=== PATIENT | female | born 1960 | race Two or more races ===

== ENCOUNTER 2023-03-31 12:35 | Emergency (ER) | payer OTHER ==
[~2023-03-31] VITALS: Ht 170.2 cm; Wt 85.3 kg
[2023-03-31] MEDS ORDERED: LUNESTA3 MG (13:49)
[2023-03-31] MEDS ORDERED: LISINOPRIL2.5 MG (13:49)
[2023-03-31] MEDS ORDERED: LEXAPRO20 MG PO (13:49)
[2023-03-31] MEDS ORDERED: PROTONIX20 MG PO (13:50)
[2023-03-31] MEDS ORDERED: SYNTHROID112 MCG PO (13:50)
[2023-03-31] MEDS ORDERED: XOPENEX HFA15 GM IH (13:50)
[2023-03-31] MEDS ORDERED: ALLERGY RELIE15.8 ML (13:50)
[2023-03-31] MEDS ORDERED: LEVSIN0.125 MG (13:51)
[2023-03-31 16:38] LABS: HEMATOCRIT 41.3 % (36.0-45.00); HEMOGLOBIN 13.7 g/dL (12.0-15.00); MEAN CORPUSCULAR HEMOGLOBIN 28.2 pg (27.00-32.0); MEAN CORPUSCULAR HGB CONC 33.1 g/dl (32.0-36.0); PLATELET COUNT 251 K/uL (150-450); RED BLOOD COUNT 4.85 M/uL (4.00-6.00); RED CELL DISTRIBUTION WIDTH 14.7 % (11.5-14.5)
[2023-03-31 17:13] LABS: ALBUMIN 3.6 gm/dL (3.4-5.0); BILIRUBIN TOTAL 0.35 mg/dL (0.3-1.2); CALCIUM 9.9 mg/dL (8.5-10.1); CREATININE SERUM 0.75 mg/dL (0.55-1.02); GFR 78.82; GLOBULINA 4.1 G/DL (2.4-3.5); POTASSIUM 3.51 mEq/L (3.5-5.1); TOTAL PROTEIN 7.7 gm/dL (6.4-8.2)
== END 2023-03-31 21:01 | disposition home or self-care (01) ==
LOC: ER 12:36 → EDBD 12:36 → ER 15:07
PROVIDERS: General Practice
DX: K52.89 Other specified noninfective gastroenteritis and colitis (principal); Z20.822 Contact with and (suspected) exposure to COVID-19